=== PATIENT | female | born 1990 | race Two or more races ===

== ENCOUNTER 2020-11-19 13:02 | Outpatient (REF) | payer OTHER, SELFPAY ==
--- NOTE | ~2020-11-19 | MR_ITS ---
EXAMINATION: MR BRAIN WITHOUT CONTRAST. CLINICAL INFORMATION: 30-year-old with diagnosis of encephalopathy. Intermittent syncopal episodes. COMPARISON: None. TECHNIQUE: Routine multiplanar multisequence MR imaging of the brain was done without contrast. FINDINGS: Brain Volume: Normal for age. Structural: No malformations. Brain and Meninges: The brain is normal in morphology and signal intensity. DWI imaging demonstrates no restricted diffusion. Gradient echo imaging demonstrates no evidence for hemorrhage, hemosiderin staining or abnormal mineral deposition. No extra-axial fluid collections, space-occupying process or mass effect are identified. Ross-white matter differentiation is well maintained. Scattered perivascular spaces are seen bilaterally. Ventricles and Subarachnoid Spaces: The ventricular system and subarachnoid spaces are within normal limits, without hydrocephalus. Orbital Structures: The visualized orbital structures are within normal limits within the limitations of the study. Vascular: Normal signal voids are seen in the visualized major intracranial vessels. Sinuses and Osseous Structures: There is nasal septal deviation to the right with minimal mucosal thickening in the ethmoid complex. Craniocervical junction appears intact. The osseous marrow spaces are within normal limits. MR/MR head/brain wo con IMPRESSION: Normal noncontrast MRI of the brain.
== END 2020-11-19 13:03 | disposition home or self-care (01) ==
LOC: HO.MRI 13:02
PROVIDERS: Visit Provider Psychiatry & Neurology Neurology
DX: G93.40 Encephalopathy, unspecified (principal)
CPT/HCPCS: 70551

== ENCOUNTER 2025-03-23 10:58 | Outpatient (AMB) | payer OTHER, SELFPAY ==
--- NOTE | 2025-03-23 11:01 | MHC.OFFVIS ---
Vital Signs 03/23/25 11:04 Height 5 ft 3 in Weight 160 lb BMI 28.3 BP 125/91 H Blood Pressure Location Lt brachial Position Sitting Respiration 20 Pulse 103 H Pulse Source Pulse Oximeter Pulse Oximetry (%) 97 Oxygen Delivery Method Room Air Intake Visit Reasons: Fibromyalgia Occupational Therapist Assistants Required: No Allergies gabapentin Allergy (Severe, Verified 03/23/25 11:01) Anaphylaxis pregabalin Allergy (Unknown, Verified 03/23/25 11:01) Tingling Sensation prednisone Allergy (Unknown, Uncoded 03/07/25 13:29) Numbness HPI Comments Details: Merari is very pleasant 35 years old female who presents in my office with widespread pain pain complaints she reports pain in bilateral legs bilateral knees bilateral arms bilateral hands the pain in the tailbone pain in the hip areas swelling in bilateral feet sometimes widespread swelling all over the body she reported that few years ago she was diagnose with fibromyalgia. Her primary care physician was treating her with venlafaxine. It was not helping her condition in great extent. She tried Cymbalta and Cymbalta was causing her mood swings and the pain Sexton was causing her angioedema. Because of her pain she can not sleep normally can not do activities of daily living can not take care of herself can not function normally. She is currently unemployed. She reports that hot and cold applications make her pain better depending on the quality of pain. She reports pain in terms of tissue damage as pulsing, throbbing, pounding, lancinating, sharp, lacerating, pinching, crushing, hot burning, tingling, stinging, dull, hurting, heavy, tiring, exhausting, punishing, spreading, radiating, tight, squeezing, tearing, cool called and freezing sensation. She never had physical therapy in relation to this condition. She had x-ray of the lumbar spine report of which is not available for me today. She never had any injections to treat her pain. Her past medical history is significant for left temporal lobe epilepsy absence seizures, she never had any surgeries, she denies smoking cigarettes denies drinking alcohol she admits smoking cannabis at night it helps her to sleep. Review of Systems Const All systems reviewed & are unremarkable except as noted in HPI and below ENT Reports Normal hearing present Neuro Reports Normal hearing present, Denies Abnormal speech present and Denies Sensory deficit (Neuro) Physical Exam Vital Signs: Last Vital Signs Pulse 103 H 03/23/25 11:04 Resp 20 03/23/25 11:04 BP 125/91 H 03/23/25 11:04 Pulse Ox 97 03/23/25 11:04 Oxygen Delivery Method Room Air 03/23/25 11:04 BMI result Body Mass Index 28.3 Const General: cooperative, healthy appearing, no acute distress and well developed Nutritional Appearance: average body habitus, well nourished and overweight Orientation/consciousness: patient oriented x3 Limitations: no limitations Eyes General: appearance normal, both eyes and all related structures Pupils: Equal, round and reactive pupils present EOM: EOMs intact bilaterally Neck Neck: Yes full ROM Chest Chest palpation & inspection: normal inspection of the chest Resp Effort & Inspection: normal respiratory effort, able to speak in complete sentences, normal respiratory pattern, no audible wheezes and no cough Cardio Jugular venous distension: no JVD GI Inspection: Yes normal to inspection Neuro General: patient oriented x3 and gait normal Cranial nerves: Yes CN's II-XII intact bilaterally, Yes Equal, round and reactive pupils present, Yes Normal hearing present and Yes Ability to bilaterally elevate shoulders present Speech: No Abnormal speech present Gait exam (Neuro): Normal gait present Motor exam (neuro): 5/5 motor strength present throughout Sensory Exam: No Sensory deficit (Neuro) Extrem General: No pedal edema Psych Speech and movement: Normal speech and movement present Affect: normal affect Attitude: cooperative Thought process: Normal thought process present Thought content: Normal thought content present Insight: Good insight present (Psych) Judgement: Good judgement present (Psych) Assessment & Plan Assessment & Plan (1) Fibromyalgia: Code(s): M79.7 - Fibromyalgia Category: Medical Plan Looks like this patient's diagnosis is fibromyalgia interfering with life of this patient. I can start her on milnacipran (Savella) next time she is in my office in 2 weeks. She would need to submit complete blood count and comprehensive metabolic panel before I start her on Savella. I also recommended her to stop her venlafaxine tapering it down by 25 mg a week. After that I will start escalating milnacipran for this patient. Prolonged and informative discussion was held about treatment of fibromyalgia. I told the patient that we can try some injections for her lower back pain, I told her to bring me the report of the x-ray of the lumbar spine she had at [facility]. However I told the patient that the rodrigues treatment element for fibromyalgia is low-impact aerobic exercise and physical therapy. I scheduled this patient for physical therapy. I also explained to her what low-impact aerobic exercise are and how to perform those exercises. Patient expressed understanding and appeared to be interested. I will see her in 2 weeks. Orders: Orders Complete Blood Count Auto Diff Today M79.7 - Fibromyalgia Comprehensive Met. Panel Today M79.7 - Fibromyalgia PT Evaluation and Treatment Today M79.7 - Fibromyalgia Patient Instructions: I hereby testify that I spent 45 minutes in conversation with this patient as well as planning her care, placing appropriate orders and organizing this note. Coding Level of Care Code New Pt Level 4 (44378) Diagnoses Fibromyalgia M79.7
[2025-03-23 11:04] VITALS: BP 125/91; PULSE 103; RESP 20; O2SAT 97; BMI 28.3
--- OUTSIDE RECORDS SUMMARY | 2025-03-23 12:31 | XMS_ITS ---
Author Name [facility] Organization Unknown History of Medication Use Medication Directions Dispensed Refills Start Date End Date Stat us venlafaxine ER 150 mg capsule,extended release 24 hr Take 1 capsule every day by oral route. 08/09/2024 active nortriptyline 25 mg capsule Take 2 capsules (50 mg total) by mouth every night at bedtime. 12/18/2021 active tizanidine 2 mg tablet Take 1 tablet (2 mg total) by mouth 3 (three) times a day as needed (muscle spasms). 11/05/2021 active methocarbamol 500 mg tablet Take 1 tablet (500 mg total) by mouth 3 (three) times a day as needed (muscle spasms). 04/30/2021 active cholecalciferol (vitamin D3) 50 mcg (2,000 unit) tablet Take 1 tablet by mouth daily. 03/05/2021 active coenzyme L70-gogikti E 100 mg-5 unit capsule Take 1 tablet by mouth daily. 09/06/2019 active magnesium 100 mg capsule Take 1 capsule by mouth daily. 09/06/2019 active venlafaxine ER 150 mg capsule,extended release 24 hr active divalproex ER 250 mg tablet,extended release 24 hr active fluoxetine 10 mg tablet TAKE 1 TABLET BY MOUTH EVERY DAY active ibuprofen 800 mg tablet active venlafaxine ER 37.5 mg capsule,extended release 24 hr TAKE 1 CAPSULE BY MOUTH EVERY DAY active Allergies Allergen Reaction Severity Comment Documented Date Source Statu s GABAPENTIN [facility] METHYLPREDNISOLONE [facility] PREGABALIN [facility] Problems Problem Status Onset Date Problem Type Date of Resoluti on Source Fibromyalgia active 2024-06-[address] [facility] Fibromyalgia active 2024-06-[address] [facility] Encounters Encounter Type Encounter Reason Primary Diagnosis Location Date Ambulatory [facility] 08/09/2024 Ambulatory [facility] 06/07/2024 Care Team Organization Name Specialty Phone Email Start Date End Da te [facility] 08/12/2024 [facility] 06/10/2022 03/21/20 24
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
--- OUTSIDE RECORDS SUMMARY | 2025-03-23 12:31 | XMS_ITS | Clinical Summary ---
Author Organization [facility] Address [address] [place] [address] Care Team Providers Care Treatment Supervisor Name Role Phone Jesus Manuel Wagner MD Primary Care Provider [phone] Allergies Active Allergy Reactions Criticality Noted Date Comments Gabapentin Itching 05/04/2017 Methylprednisolone Swelling 10/11/2018 Pregabalin 05/12/2019 Arm tingling Tingling sensation Medications Medication Sig Dispensed Refills Start Date End Date Status Cholecalciferol 50 MCG (1999 UT) TABS Take 1 tablet by mouth daily. 0 03/05/2021 Active Coenzyme Q10 100 MG capsule Take 1 tablet by mouth daily. 0 09/06/2019 Active Magnesium 100 MG CAPS Take 1 capsule by mouth daily. 0 09/06/2019 Active methocarbamol (ROBAXIN) 500 MG tablet Take 1 tablet (500 mg total) by mouth 3 (three) times a day as needed (muscle spasms). 90 tablet 0 04/30/2021 Active Additional Information Patient not taking.Reason: Other, Reported on 11/03/2022 tiZANidine (ZANAFLEX) 2 MG tablet Take 1 tablet (2 mg total) by mouth 3 (three) times a day as needed (muscle spasms). 90 tablet 2 11/05/2021 Active Additional Information Patient not taking.Reason: Other, Reported on 11/03/2022 nortriptyline (PAMELOR) 25 MG capsule Take 2 capsules (50 mg total) by mouth every night at bedtime. 60 capsule 0 12/18/2021 Active Additional Information Patient not taking.Reason: Other, Reported on 11/03/2022 meloxicam (MOBIC) 7.5 MG tablet Take 1 tablet (7.5 mg total) by mouth daily as needed for pain. 30 tablet 0 03/16/2024 Active venlafaxine (EFFEXOR-XR) 75 MG 24 hr capsule TAKE 1 CAPSULE BY MOUTH EVERY DAY 30 capsule 0 05/19/2024 Active Social History Tobacco Use Types Packs/Day Years Used Date Smoking Tobacco: Never Smokeless Tobacco: Never Alcohol Use Standard Drinks/Week Comments Never 0 (1 standard drink = 0.6 oz pur e alcohol) Sex and Gender Information Value Date Recorded Sex Assigned at Not on file Gender Identity Not on file Sexual Orientation Not on file Job Start Date Occupation Industry Not on file Not on file Not on file Last Filed Vital Signs Vital Sign Reading Time Taken Comments Blood Pressure 137/97 03/16/2024 11:00 AM EDT Pulse 99 03/16/2024 11:00 AM EDT Temperature 35.7 C (96.2 F) 03/16/2024 11:00 AM EDT Respiratory Rate - - Oxygen Saturation 99% 03/16/2024 11:00 AM EDT Inhaled Oxygen Concentration - - Weight 82 kg (180 lb 12.4 oz) 11/03/2022 1:05 PM EDT Height 152.4 cm (5') 03/19/2021 1:56 PM EDT Body Mass Index 35.31 03/19/2021 1:56 PM EDT Plan of Treatment Health Maintenance Due Date Last Done Comments Hepatitis B Vaccines (1 of 3 - 3-dose series) 1989 Hepatitis C Screening 1989 COVID-19 Vaccine (#1) 1989 Depression Screening 2001 BMI Counseling 2007 Preventative Health Evaluation 2007 Cervical Cancer Screening (Pap Smear) 2010 Influenza Vaccine (#1) 2025 06/14/2013 DTap / Tdap / Td (4 - Td or Tdap) 11/06/2032 11/06/2022, 10/26/2017, 01/16/2015 Pneumococcal Vaccine Aged Out No long er eligible based on patient's age to complete this topic RSV Ped < 20 months Aged Out No longe r eligible based on patient's age to complete this topic Care Teams Treatment Supervisor Relationship Specialty Start Date End Date Jesus Manuel Wagner MD PCP - General Internal Medicine 04/30/21
--- OUTSIDE RECORDS SUMMARY | 2025-03-23 12:31 | XMS_ITS | Clinical Summary ---
Author Organization [facility] Address [address] [place] [address] Phone Care Team Providers Care Bit And Shank Department Supervisor Name Role Phone Jesus Manuel Wagner MD Primary Care Provider + Allergies Active Allergy Reactions Criticality Noted Date Comments Gabapentin Itching 03/09/2019 Methylprednisolone Swelling 03/09/2019 Pregabalin 05/12/2019 Arm tingling Medications topiramate (TOPAMAX) 50 MG tablet Take 50 mg by mouth 2 (two) times a day. Active albuterol 90 mcg/actuation inhaler Inhale 2 puffs into the lungs as needed. Active ergocalciferol (DRISDOL) 50,000 unit capsule Take 1 capsule (50,000 Units total) by mouth once a week. 4 capsule 3 03/21/2019 Active nabumetone (RELAFEN) 500 MG tabletIndicatio ns:Fibromyalgia ,Pain in both hands Take 1 tab twice daily with 60 tablet 1 07/18/2019 Active Active Problems Problem Noted Date Diagnosed Date Pain in both hands 07/18/2019 Assessment & Plan (08/13/2019 4:39 PM EST): Joint protection, energy conservation. Formal OT offered-patient declined at this time. Examples of hand exercises printed and provided for home use. I took the liberty of new set of x-rays and lab work to make sure that she does not develop early signs of inflammatory arthritis such as rheumatoid arthritis. Vitamin D insufficiency 05/12/2019 Assessment & Plan (08/13/2019 4:33 PM EST): You proper supplementation to replace insufficiency.. Assessment & Plan (05/24/2019 11:48 AM EDT): Serum level requested prior to weekly dose to check for response and make sure there is no need for adjusting the dosing. PTSD (post-traumatic stress disorder) 05/12/2019 Assessment & Plan (08/13/2019 4:38 PM EST): Close follow-up with psychotherapist as scheduled and continue taught strategies in daily life. Assessment & Plan (05/24/2019 11:52 AM EDT): Close follow-up with psychotherapist as scheduled and continue taught strategies in daily life. Fibromyalgia 03/09/2019 Assessment & Plan (08/13/2019 4:37 PM EST): On her request I agreed to provide her a different prescription for NSAID- nabumetone warning her about possible irritation to her stomach if taken without food. Pamphlet on side effects also provided for monitoring at home. She is explained that therapy requires her active involvement and very close communication with me in order to develop successful therapeutic regimen that includes regular psychotherapy with therapist well-versed in treating patients with fibromyalgia, chronic pain, PTSD utilizing CBT, positive imagery, DNRS (dynamic neural retraining system), EMDR (eye movement desensitization reprocessing) etc. Very important part of therapy is gentle, regular exercise routine gradually building up strength and endurance to her tolerance as described above. I suggested her to look into availability of warm pool exercise program that may be easier to tolerate. I wrote her a referral for 2-3 times a week sessions for 12-16 weeks to start with (see details in media section of epic) Additional benefit may be achieved by reading book written by Dr Bowen Barreto [facility] addressing management strategies for patients with fibromyalgia utilizing mindfulness approach that appears especially helpful for patients with fibromyalgia and depression/anxiety/PTSD. She is requesting 2nd opinion consultation in [place] to make sure that there is nothing missing Assessment & Plan (05/24/2019 11:54 AM EDT): In her case I suggested timing of hula hoop sessions tolerated amount and setting timer shorter by 30 seconds then first sign of uncomfortable discomfort to continue for 7-14 days until she feels comfortable to carefully increase the time by no more than 10% of tolerated amount. Since she could not tolerate Lyrica I am offering her different fibromyalgia FDA approved medication Savella starting with a titration pack. I briefly reviewed with her most frequent side effects of Savella including but not limited to GI upset, skin rash, sleep disturbance versus suicidal ideations. She was provided with a pamphlet on side effect profile to read and monitor for. Call with problems or questions. She is explained that therapy requires her active involvement and very close communication with me in order to develop successful therapeutic regimen that includes regular psychotherapy with therapist well-versed in treating patients with fibromyalgia, chronic pain, PTSD utilizing CBT, positive imagery, DNRS (dynamic neural retraining system), EMDR (eye movement desensitization reprocessing) etc. Very important part of therapy is gentle, regular exercise routine gradually building up strength and endurance to her tolerance as described above. I suggested her to look into availability of warm pool exercise program that may be easier to tolerate. I wrote her a referral for 2-3 times a week sessions for 12-16 weeks to start with (see details in media section of epic) Additional benefit may be achieved by reading book written by Dr Bowen Barreto [facility] living addressing management strategies for patients with fibromyalgia utilizing mindfulness approach that appears especially helpful for patients with fibromyalgia and depression/anxiety/PTSD. Assessment & Plan (03/09/2019 11:34 PM EDT): We discussed the diagnosis of fibromyalgia, its natural history, and treatment. Specifically, we discussed that treatment requires many interventions and recognition that we are often unable to get patients completely pain free. Management of fibromyalgia requires patient engagement to address any underlying depression, anxiety, or sleep disorder. Further, patients are encouraged to engage in regular physical activity. Some studies have suggested that Buzz Chi is effective. Other physical activity may including water-based aerobics, gentle yoga, biking, walking, Pilates etc. In her case I suggested timing of hula hoop sessions tolerated amount and setting timer shorter by 30 seconds then first sign of uncomfortable discomfort to continue for 7-14 days until she feels comfortable to carefully increase the time by no more than 10% of tolerated amount. In terms of pharmacotherapy, there are many options, including tricyclic antidepressants, duloxetine, gabapentin or pregabalin, and cyclobenzaprine as well as other similar medications to those listed. In this case, the patient might try carefully low-dose Lyrica at 25 mg nightly x 14 days and if tolerated consider increasing the dose to 25 mg twice daily. I provided her with a list of possible side effects to watch for and encouraged her sister to help her monitor for side effects. She is encouraged to call with any problems or questions. She is explained that therapy requires her active involvement and very close communication with me in order to develop successful therapeutic regimen that includes regular psychotherapy with therapist well-versed in treating patients with fibromyalgia, chronic pain, PTSD utilizing CBT, positive imagery, DNRS (dynamic neural retraining system), EMDR (eye movement desensitization reprocessing) etc. Very important part of therapy is gentle, regular exercise routine gradually building up strength and endurance to her tolerance as described above. I suggested her to look into availability of warm pool exercise program that may be easier to tolerate. Additional benefit may be achieved by reading book written by Dr Bowen Barreto [facility] living addressing management strategies for patients with fibromyalgia utilizing mindfulness approach that appears especially helpful for patients with fibromyalgia and depression/anxiety/PTSD. Leukopenia 03/09/2019 Assessment & Plan (03/09/2019 11:20 PM EDT): I requested another set of CBC with differential to define it better and check for interval change. Avoid sick contacts. Monitor periodically. Keep up-to-date with vaccination schedule. Vitamin D deficiency 03/09/2019 Assessment & Plan (03/09/2019 11:21 PM EDT): Serum level requested prior to weekly dose to check for response and make sure there is no need for adjusting the dosing. Urinary frequency 03/09/2019 Chronic pain in right foot 03/09/2019 Assessment & Plan (03/09/2019 11:36 PM EDT): Well fitting, supportive shoes. Gentle, regular exercises and consideration for regular foot spa at bed time. Topical cream such as Arnica, Biofreeze, capsaicin or medicated patches such as salonpas or icy hot 2-3 times daily and if necessary at bedtime x 3 weeks or longer if no side effects. Chronic pain in left foot 03/09/2019 Family History Medical History Relation Comments Diabetes Father HIV Mother Relation Status Comments Father Mother Social History Tobacco Use Types Packs/Day Years Used Date Smoking Tobacco: Former Smokeless Tobacco: Never Comments:smokes marijuana Alcohol Use Standard Drinks/Week Comments Not Currently 0 (1 standard drink = 0.6 oz pur e alcohol) Education Answer Date Recorded Are you interested in more education? Not on nereyda e 11/28/2022 Are you concerned about learning? Not on file 11/28/2022 No 11/28/2022 No 11/28/2022 Digital Access Answer Date Recorded No 12/27/2022 No 12/27/2022 No 12/27/2022 Reliable internet access at home? Not on file 12/27/2022 Device with a working camera? Not on file Comments Unknown Sex and Gender Information Value Date Recorded Sex Assigned at Not on file Legal Sex Female 12:22 PM EDT Gender Identity Not on file Sexual Orientation Not on file Last Filed Vital Signs Vital Sign Reading Time Taken Comments Blood Pressure 122/78 07/18/2019 11:07 AM EST Pulse - - Temperature - - Respiratory Rate - - Oxygen Saturation - - Inhaled Oxygen Concentration - - Weight 63.5 kg (140 lb) 07/18/2019 11:07 AM EST Height 152.4 cm (5') 07/18/2019 11:07 AM EST Body Mass Index 27.34 07/18/2019 11:07 AM EST Plan of Treatment Health Maintenance Due Date Last Done Comments DEPRESSION SCREENING 2001 SMOKING Hx and SMOKELESS TOBACCO SCREENING 2002 HEPATITIS C SCREENING 2007 HIV ONE-TIME SCREENING (18-6 5 YEARS) 2007 PAP SMEAR 2010 COVID-19 VACCINE (2023-2 5 season) 2024 Adult Td,Tdap Booster 10/27/2027 10/26/2017 , 01/16/2015 HEPATITIS A VACCINES Aged Out No long er eligible based on patient's age to complete this topic HIB VACCINES Aged Out No longer eligi ble based on patient's age to complete this topic MENINGOCOCCAL VACCINES (ACWY) Aged Out No longer eligible based on patient's age to complete this topic MENINGOCOCCAL VACCINES (B) Aged Out N o longer eligible based on patient's age to complete this topic PNEUMOCOCCAL VACCINES (0-49 years) Aged Out No longer eligible b ased on patient's age to complete this topic Medical Devices Not on [place] [address] [place] [address] [email or web address] [address] [address] [place], [place] [address] [facility] [employer] [facility] [employer] [facility] [employer] [facility] [employer] [place] [address] [place] [address] [employer] [facility] [employer] Care Teams Bit And Shank Department Supervisor Relationship Specialty Start Date End Date Jesus Manuel Wagner MD [address] [place] [id number] PCP - General Internal Medicine 12/10/18 Additional Source Comments The information contained in this document represents components of the legal health record. It is not the complete legal health record.[facility]
== END 2025-03-23 11:35 | disposition home or self-care (01) ==
LOC: HO.PMC 10:58
PROVIDERS: PCP Internal Medicine; Referring Provider Internal Medicine; Visit Provider Anesthesiology
DX: M79.7 Fibromyalgia (principal)
CPT/HCPCS: 99204

== ENCOUNTER → 2025-03-23 10:58 | Outpatient (BNVA) | payer OTHER, SELFPAY | PROVIDERS: PCP Internal Medicine; Referring Provider Internal Medicine; Visit Provider Anesthesiology | DX: M79.7 Fibromyalgia (principal) | CPT/HCPCS: 99202 ==

== ENCOUNTER 2025-03-28 09:39 | Outpatient (REF) | payer OTHER, SELFPAY ==
[2025-03-28 10:12] LABS: MANUAL DIFF FLAG NO
--- OUTSIDE RECORDS SUMMARY | 2025-03-28 10:18 | XMS_ITS | Clinical Summary ---
Author Organization [facility] Address [address] [place] [address] Care Team Providers Care Instrumentation Controls Engineer Name Role Phone Jesus Manuel Wagner MD Primary Care Provider [phone] Allergies Active Allergy Reactions Criticality Noted Date [...] age to complete this topic Care Teams Instrumentation Controls Engineer Relationship Specialty Start Date End Date Jesus Manuel Wagner MD PCP - General Internal Medicine 04/30/21
--- OUTSIDE RECORDS SUMMARY | 2025-03-28 10:18 | XMS_ITS | Clinical Summary ---
Author Organization [facility] Address [address] [place] [address] Phone Care Team Providers Care Document Management Specialist Name Role Phone Jesus Manuel Wagner MD Primary Care Provider [phone] Allergies Active Allergy Reactions Criticality Noted Date [...] PM EDT [facility] [address] [facility] [place] [address] Jesus Manuel Wagner MD Adult general medical examination (Primary Dx); Fibromyalgia; Screening for deficiency anemia; Screening for hyperlipidemia; Screening for diabetes mellitus; Screening for thyroid disorder; Bunion 01/25/2025 Telephone [facility] Leidy Keita [place] from [...] (Age 22) OD Brother 2 Torrey Alive Otrrey-unkno wn health status Daughter 1 Michelle Alive Daughter 2 Miriam Alive Father Alive Diabetes Maternal Grandfather Maternal Grandmother Mother (Age 40) HIV Paternal Grandfather Paternal Grandmother Sister 1 Cornelia Alive Ocrnelia- unknown health status, does not see medical [...] 10:15 AM EDT Consult Orthopedic Surgery - [facility] [address] [place] [phone] Adal Estrella, DPM [address] [place] [address] Health Maintenance Due Date Last Done Comments [...] and free t3 (01/25/2025 12:50 PM EDT) [facility] TSH 1.44 0.40 - 4.00 mcIU/mL LAB CHEMISTRY METHOD 01/25/2025 7:58 PM EDT [facility] Blood Venous blood specimen / Unknown Venipuncture / Unknown 01/25/2025 12:50 PM EDT 01/25/2025 12:50 PM EDT us Jesus Manuel Wagner MD LAB BLOOD ORDERABLES Final Res ult [facility] [address] [place] [address], [place] [phone] * (ABNORMAL) Lipid panel with reflex to direct LDL (01/25/2025 12:50 PM EDT) Pathologist [facility] Cholesterol 210(H) 0 - 200 mg/dL LAB CHEMISTRY METHOD 01/25/2025 7:37 PM EDT [facility] Triglycerides 97 0 - 150 mg/dL LAB CHEMISTRY METHOD 01/25/2025 7:37 PM EDT [facility] HDL 55 >=40 mg/dL LAB CHEMISTRY METHOD 01/25/2025 7:37 PM EDT [facility] LDL Calculated 136(H) 0 - 100 mg/dL LAB CHEMISTRY METHOD 01/25/2025 7:37 PM EDT [facility] VLDL Cholesterol Edward 19.4 mg/dL LAB CHEMISTRY METHOD 01/25/2025 7:37 PM EDT [facility] Non HDL Chol. (LDL+VLDL) 155(H) <145 mg/dL LAB CHEMISTRY METHOD 01/25/2025 7:37 PM EDT [facility] Chol/HDL Ratio 3.8 0.0 - 4.4 LAB CHEMISTRY METHOD 01/25/2025 7:37 PM EDT [facility] Blood Venous blood specimen / Unknown Venipuncture / Unknown 01/25/2025 12:50 PM EDT 01/25/2025 12:50 PM EDT us Jesus Manuel Wagner MD LAB BLOOD ORDERABLES Final Res ult [facility] [address] [place] [address], [place] [phone] * JAMES IFA with titer and pattern (01/25/2025 12:50 PM EDT) JAMES Negative Negative 01/26/2025 11:22 AM EDT [facility] Blood Venous blood specimen / Unknown Venipuncture / Unknown 01/25/2025 12:50 PM EDT 01/25/2025 12:50 PM EDT us Jesus Manuel Wagner MD LAB BLOOD ORDERABLES Final Res ult Performing Organization Address [facility] Co de Phone Number [facility] [address] [place] [address], [place] [phone] * Borrelia burgdorferi antibody (01/25/2025 12:50 PM EDT) [facility] Lyme Ab Negative Negative LAB CHEMISTRY METHOD 01/26/2025 9:18 AM EDT [facility] Comment: No laboratory evidence of infection [...] ORDERABLES Final Res ult Performing Organization Address [facility] Co de Phone Number [facility] [address] [place] [address], [place] [phone] * Sedimentation rate (01/25/2025 12:50 PM EDT) [facility] Sed Rate 5 0 - 20 mm/hr LAB HEMETOLOGY METHOD 01/25/2025 2:59 PM EDT [facility] Blood Venous blood specimen / Unknown Venipuncture / Unknown 01/25/2025 12:50 PM EDT 01/25/2025 12:50 PM EDT us Jesus Manuel Wagner MD LAB BLOOD ORDERABLES Final Res ult Performing Organization Address [facility]/ZIP Co de Phone Number [facility] [address] [place] [address], [place] [phone] * (ABNORMAL) Complete blood count (01/25/2025 12:50 PM EDT) [facility] WBC 4.7(L) 4.8 - 10.8 K/mcL LAB HEMETOLOGY METHOD 01/25/2025 2:40 PM EDT [facility] RBC 4.10 3.80 - 4.80 M/mcL LAB HEMETOLOGY METHOD 01/25/2025 2:40 PM EDT [facility] Hemoglobin 12.1 11.5 - 16.0 g/dL LAB HEMETOLOGY METHOD 01/25/2025 2:40 PM EDT [facility] Hematocrit 37.7 35.0 - 47.0 % LAB HEMETOLOGY METHOD 01/25/2025 2:40 PM T [facility] MCV 91.7 79.0 - 98.0 FL LAB HEMETOLOGY METHOD 01/25/2025 2:40 PM [facility] MCH 29.4 27.0 - 32.0 pcg LAB HEMETOLOGY METHOD 01/25/2025 2:40 PM T [facility] MCHC 32.1 32.0 - 37.0 g/dL LAB HEMETOLOGY METHOD 01/25/2025 2:40 PM T [facility] RDW 12.9 11.0 - 15.0 % LAB HEMETOLOGY METHOD 01/25/2025 2:40 PM [facility] Platelets 365 130 - 400 K/mcL LAB HEMETOLOGY METHOD 01/25/2025 2:40 PM T [facility] MPV 10.4 7.0 - 11.0 FL LAB HEMETOLOGY METHOD 01/25/2025 2:40 PM EDT [facility] NRBC 0.0 <1.0 % LAB HEMETOLOGY METHOD 01/25/2025 2:40 PM [facility] NRBC Absolute 0.00 <0.10 K/mcL LAB HEMETOLOGY METHOD 01/25/2025 2:40 PM [facility] Blood Venous blood specimen / Unknown Venipuncture / Unknown 01/25/2025 12:50 PM EDT 01/25/2025 12:50 PM EDT us Jesus Manuel Wagner MD LAB BLOOD ORDERABLES Final Res ult Performing Organization Address [facility]/ZIP Co de Phone Number [facility] [address] [place] [address], [place] [phone] * Rheumatoid factor (01/25/2025 12:50 PM EDT) Rheumatoid Factor <10.0 <15.0 I Unit/mL LAB CHEMISTRY METHOD 01/25/2025 7:37 PM EDT [facility] Blood Venous blood specimen / Unknown Venipuncture / Unknown 01/25/2025 12:50 PM EDT 01/25/2025 12:50 PM EDT us Jesus Manuel Wagner MD LAB BLOOD ORDERABLES Final Res ult Performing Organization Address [facility] Co de Phone Number [facility] [address] [place] [address], [place] [phone] * (ABNORMAL) Uric acid (01/25/2025 12:50 PM EDT) Pathologist [facility] Uric Acid 3.0(L) 3.1 - 7.8 mg/dL LAB CHEMISTRY METHOD 01/25/2025 7:32 PM EDT [facility] Blood Venous blood specimen / Unknown Venipuncture / Unknown 01/25/2025 12:50 PM EDT 01/25/2025 12:50 PM EDT us Jesus Manuel Wagner MD LAB BLOOD ORDERABLES Final Res ult Performing Organization Address [facility]/ZIP Co de Phone Number [facility] [address] [place] [address], [place] [phone] * Comprehensive metabolic panel (01/25/2025 12:50 PM EDT) Sodium 139 133 - 145 mmol/L LAB CHEMISTRY METHOD 01/25/2025 7:43 PM [facility] Potassium 4.7 3.5 - 5.5 mmol/L LAB CHEMISTRY METHOD 01/25/2025 7:43 PM [facility] Chloride 109 96 - 110 mmol/L LAB CHEMISTRY METHOD 01/25/2025 7:43 PM [facility] CO2 25 21 - 32 mmol/L LAB CHEMISTRY METHOD 01/25/2025 7:43 PM [facility] Anion Gap 5 3 - 11 LAB CHEMISTRY METHOD 01/25/2025 7:43 PM [facility] Glucose 92 70 - 100 mg/dL LAB CHEMISTRY METHOD 01/25/2025 7:43 PM [facility] BUN 6 5 - 25 mg/dL LAB CHEMISTRY METHOD 01/25/2025 7:43 PM [facility] Creatinine 0.79 0.50 - 1.10 mg/dL LAB CHEMISTRY METHOD 01/25/2025 7:43 PM [facility] eGFR 100 >=60 mL/min/1. 73m2 LAB CHEMISTRY METHOD 01/25/2025 7:43 PM [facility] Comment:Calculation based on the Chronic Kidney Disease Epidemiology Collaboration (CKD-EPI) equation refit without adjustment for race. BUN/Creatinine Ratio 7.6 LAB CHEMISTRY METHOD 01/25/2025 7:43 PM [facility] Calcium 9.1 8.5 - 10.5 mg/dL LAB CHEMISTRY METHOD 01/25/2025 7:43 PM [facility] AST (SGOT) 14 10 - 42 unit/L LAB CHEMISTRY METHOD 01/25/2025 7:43 PM [facility] ALT (SGPT) 12 10 - 60 unit/L LAB CHEMISTRY METHOD 01/25/2025 7:43 PM EDT [facility] Alkaline Phosphatase 73 42 - 121 unit/L LAB CHEMISTRY METHOD 01/25/2025 7:43 PM EDT [facility] Total Protein 7.3 6.0 - 8.0 g/dL LAB CHEMISTRY METHOD 01/25/2025 7:43 PM EDT [facility] Albumin 3.9 3.2 - 5.0 g/dL LAB CHEMISTRY METHOD 01/25/2025 7:43 PM EDT [facility] Total Bilirubin 0.1 0.0 - 1.4 mg/dL LAB CHEMISTRY METHOD 01/25/2025 7:43 PM EDT [facility] Blood Venous blood specimen / Unknown Venipuncture / Unknown 01/25/2025 12:50 PM EDT 01/25/2025 12:50 PM EDT us Jesus Manuel Wagner MD LAB BLOOD ORDERABLES Final Res ult [facility] [address] [place] [address], * Pap smear (07/17/2022) 07/17/2022 Narrative HISTORICAL TESTING LAB RESULTING AGENCY - 07/23/2022 4:30 PM EST [id number] THINPREP PAP, IMAGED: NEGATIVE FOR SQUAMOUS INTRAEPITHELIAL [...] Most Recently Relevant to Health Maintenance Insurance [facility] PLAN Care Teams Document Management Specialist Relationship Specialty Start Date End Date Jesus Manuel Wagner MD [address] [place] [id number] PCP - General Internal Medicine 05/10/12
--- OUTSIDE RECORDS SUMMARY | 2025-03-28 10:18 | XMS_ITS | Clinical Summary ---
Author Organization [facility] Address [address] [place] [address] Phone Care Team Providers Care Kit Assembler Name Role Phone Jesus Manuel Wagner MD [...] She is requesting 2nd opinion consultation in [place] to make sure that there is nothing [...] topic Medical Devices Not on file [place] [address] [place] [address] [email or web address] [address] [place], [place] [id number] [facility] [employer] [facility] [employer] [facility] [employer] [facility] [employer] [place] [address] [place] [address] [employer] [facility] [employer] Care Teams Kit Assembler Relationship Specialty Start Date End Date Jesus Manuel Wagner MD [address] [place] [phone] PCP - General Internal Medicine 12/10/18 Additional Source Comments The information contained in this document represents components of the legal health record. It is not the complete legal health record.[facility]
[2025-03-28 11:02] LABS: Hematocrit 37.9 % (37.0-47.0); Hemoglobin 12.2 g/dl (12.0-16.0); Imm Gran Abs Auto 0.01 X10*3/uL (0.00-0.03); Imm Gran Pct Auto 0.2 % (0.0-0.4); Lymphocytes Absolute Auto 2.6 X10*3/uL (1.2-4.9); Mean Corpuscular HGB Conc 32.2 g/dl (31.0-35.0); Mean Corpuscular Hemoglobin 29.3 pg (27.0-33.0); Mean Corpuscular Volume 91.1 fL (80.0-98.0); NRBC Abs Auto 0.000 X10*3/uL (0.0-0.012); NRBC Pct Auto 0.0 /100WBC (0.0-0.2); Platelet Count 333 X10*3/uL (160-400); Red Blood Count 4.16 X10*6/uL (4.20-5.50); White Blood Count 5.5 X10*3/uL (4.8-10.8)
[2025-03-28 11:50] LABS: Alanine Aminotransferase 10 U/L (0-31); Albumin Level 4.5 g/dL (3.5-5.0); Alkaline Phosphatase 69 U/L (39-117); Anion Gap 12 (12-20); Aspartate Amino Transferase 19 U/L (5-31); Blood Urea Nitrogen 8 mg/dL (9-16); Calcium 9.1 mg/dL (8.4-10.2); Carbon Dioxide 25 mmol/L (22-29); Chloride 108 mmol/L (96-108); Estimated Glomerular Filt Rate > 60; Potassium 4.4 mmol/L (3.3-5.1); Sodium 141 mmol/L (135-145); Total Protein 7.0 g/dL (6.5-8.0)
== END 2025-03-28 09:40 | disposition home or self-care (01) ==
LOC: HO.LAB 09:39
PROVIDERS: PCP Internal Medicine; Visit Provider Anesthesiology
DX: M79.7 Fibromyalgia (principal)
CPT/HCPCS: 36415; 80053; 85025